=== PATIENT | female | born 1995 | race Caucasian/White ===

== ENCOUNTER 2019-07-07 18:53 | Emergency (ER) | payer OTHER ==
[~2019-07-07] VITALS: Ht 147.3 cm; Wt 99.8 kg
[2019-07-07 19:02] VITALS: Ht 147.3 cm; Wt 99.8 kg
[2019-07-07 21:31] VITALS: BP 123/89
== END 2019-07-07 21:31 | disposition home or self-care (01) ==
LOC: ED 18:53
DX: R51 Headache (principal); R20.0 Anesthesia of skin
CPT/HCPCS: J1885